=== PATIENT | female | born 2005 | race African-American/Black ===

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

== ENCOUNTER 2023-06-13 14:02 | Emergency (ER) | payer OTHER, SELFPAY | END 2023-06-13 15:04 | disposition home or self-care (01) | LOC: CSHERS 14:02 | DX: J02.0 Streptococcal pharyngitis (principal); F17.290 Nicotine dependence, other tobacco product, uncomplicated | CPT/HCPCS: 99282 ==